=== PATIENT | female | born 1935 | race Caucasian/White ===

== ENCOUNTER → 2016-09-03 08:34 | Outpatient (CLI) | payer MEDICARE, BC ==
[2013-06-07 07:01] VITALS: BMI 29.9
[~2016-09-03 08:34] MED LIST: BAYER CHEWABLE81 MG PO; BUSPAR5 MG PO; CARAFATE1 G PO; CETIRIZINE HCL5 MG PO; CULTURELLE1 CAP PO; DESERYL100 MG PO; FLAXSEED OIL1000 MG PO; HYOSCYAMINE0.125 M1 SL; PLAVIX75 MG PO; PRILOSEC20 MG PO; SYMBICORT 16010.2 GM INH; VITAMIN D5000 UNIT PO; ZOCOR80 MG PO
--- NOTE | 2016-09-03 09:52 | NUR ---
Nutrition education for DMT2: Pt interview reveals pt is eating at very erratic times during the day. Pt is not eating at the same time 2 days in a row. Pt is eating very small meals, almost snack size meals, and is trying to avoid most CHO. However, pt did not know that fruit and dairy are CHO containing foods. Pt is also eating a lot of high sugar foods and drinks. Pt likes cookies and milk, ice cream and fast food. Pt reports she does not think she eats too much of these foods. Ht: 5'6" Wt: 208# IBW: 130# +/-10% BMI: 34 Meds: Metformin Reviewed CHO containing foods and the affect CHO have on glucose. Reviewed portion sizes of common CHO foods. Stressed the importance of eating meals at consistent times every day along with portion control to keep glucose under good control every day. Reviewed sample menus with emphasis on CHO foods. Reviewed normal glucose numbers for before meals and after meals. Reviewed A1c numbers. Advised pt to purchase a glucometer from [employer] and start checking blood sugar. Provided pt with printed diet information and RDN name and phone number. RDN will be available if needed. Pt with fair to good understanding of information provided. RDN feels pt will attempt to be compliant with information. Thank you for the consult.
== END | disposition home or self-care (01) ==
LOC: D.FANS 08-21 10:30
DX: E11.9 Type 2 diabetes mellitus without complications (principal)

== ENCOUNTER 2017-04-07 09:08 | Outpatient (CLI) | payer MEDICARE, BC ==
--- NOTE | ~2017-04-07 | HEMODYNAMI ---
PATIENT:LISBETH SHABAZZ MEDICAL RECORD: [id number] : 37 LOCATION:[facility] ADMISSION DATE: 04/07/17 Generatedon:04/07/201711:16 Patient name: LISBETH SHABAZZ Patient #: [id number] SSN: : 1935 Date of study: 04/07/2017 Page: Of Hemodynamic Procedure Report Patient Data Patient Demographics Procedure consent was obtained First Name: LISBETH Gender: Female Last Name: MELE : 1935 [facility] Initial: D Age: 81 year(s) Patient #: [id number] Race: Unknown Additional ID: [id number] Contact details Address: [address] [place] [address] State: [place] City: [facility] Zip code: [address] Past Medical History Allergies Allergen Reaction Date Comments Reported Other allergy 04/07/2017 Codeine, Pentazocine. Admission Admission Data Admission Date: 04/07/2017 Admission Time: 9:08 Admit Source: Other Lab Results Lab Result Date: 04/07/2017 Lab Result Time: 9:40 Biochemistry Name Units Result Min Max BUN mg/dl 15 --(--*-)-- 7 18 Creatinine mg/dl 1 --(--*-)-- 0.6 1.3 CBC Name Units Result Min Max Hematocrit % 38.2 *-(----)-- 42 54 Hemoglobin g/dl 12.1 *-(----)-- 13.5 17.5 Procedure Procedure Types Cath Procedure Diagnostic Procedure [facility] w/Coronaries PCI Procedure Coronary Stent Initial Miscellaneous Procedures Moderate Sedation up to 30 minutes Procedure Description Procedure Date Procedure Date: 04/07/2017 Procedure Start Time: 10:56 Procedure End Time: 11:12 Procedure Staff Name Function Viridiana Spencer RT Scrub North Reilly RN Nurse Ishmael Baez MD Performing Physician Zion Comer RT Monitor Procedure Data Cath Procedure Fluoroscopy Diagnostic fluoroscopy Total fluoroscopy Time: 4.4 time: 4.4 min min Diagnostic fluoroscopy Total fluoroscopy dose: dose: 203.26 mGy 203.26 mGy Contrast Material Contrast Material Type Amount (ml) Isovue 300 106 Entry Location Entry Primary Successful Side Size Upsize Upsize Entry Closure Ugalde ccessful Closure Location (Fr) 1 (Fr) 2 (Fr) Remarks Device Remarks Radial Right 6 Fr Mechanical artery Short Compression Estimated blood loss: 10 ml Diagnostic catheters Device Type Used For End Catheter Placement Diagnostic Terumo 5Fr Procedure Accident 110cm catheter Procedure Complications No complications Procedure Medications Medication Administration Route Dosage Oxygen NC 2 l/min Heparin Flush Bag added to field 2 bags (1000units/500ml NS) 0.9% NaCl I.V. 100 ml/hr Radial Cocktail added to field 1 syringe (Verapomil 2mg/Nitro 400mcg/Heparin 1500units) Fentanyl I.V. 50 mcg Versed I.V. 1 mg Radial Cocktail I.A. 1 syringe (Verapomil 2mg/Nitro 400mcg/Heparin 1500units) Fentanyl I.V. 50 mcg Versed I.V. 1 mg Heparin Bolus I.V. 4000 units Integrilin (Bolus I.V. 7.3 ml 2mg/ml) Integrilin (Bolus wasted 2.7 ml 2mg/ml) Plavix P.O. 600 mg Hemodynamics Rest HGB: 12.1 (g/dl) Heart Rate: 69 (bpm) Pressure Samples Time Site Value (mmHg) Purpose Heart Use Rate(bpm) 10:57 LV 190/145,138 Snapshot 75 10:57 LV 135/7,13 Snapshot 72 Snapshots Pre Cath Intra NCS Post Cath Vital Signs Time Heart Resp SPO2 NIBP (mmHg) Rhythm Pain Sedation Rate (ipm) (%) Status Level (bpm) 10:44:13 65 18 98 187/95(134) NSR 0 (11) 10(A) , No pain 10:48:47 67 18 94 185/87(154) NSR 0 (11) 10(A) , No pain 10:53:18 69 16 98 167/88(145) NSR 0 (11) 10(A) , No pain 10:57:46 73 19 98 127/76(109) NSR 0 (11) 9(A) , No pain 11:02:02 75 19 95 140/79(112) NSR 0 (11) 9(A) , No pain 11:06:24 77 16 97 146/78(114) NSR 0 (11) 9(A) , No pain 11:10:46 78 17 98 162/85(131) NSR 0 (11) 10(A) , No pain Medications Time Medication Route Dose Verified Delivered Reason Note s Effectiveness by by 10:40:17 Oxygen NC 2 l/min Ishmael Kat Per physician Nestor Reilly RN 10:40:26 Heparin Flush added 2 bags Ishmael Kat used for Bag to Nestor Reilly RN procedure (1000units/500ml field NS) 10:40:36 0.9% NaCl I.V. 100 Ishmeal Kat Per physician ml/hr Nestor Reilly RN 10:40:47 Radial Cocktail added 1 Ishmael Kat used for (Verapomil to syringe Nestor Reilly RN procedure 2mg/Nitro field 400mcg/Hepari 10:54:34 Fentanyl I.V. 50 mcg Ishmael Kat for sedation Nestor Reilyl RN 10:54:44 Versed I.V. 1 mg Ishmael Kat for sedation Nestor Reilly RN 10:56:28 Radial Cocktail I.A. 1 Ishmael Quiñones for (Verapomil syringe Nestor Baez MD vasodilation 2mg/Nitro 400mcg/Hepari 10:57:07 Fentanyl I.V. 50 mcg Ishmael Quiñones for sedation Nestor Baez MD 10:57:12 Versed I.V. 1 mg Ishmael Quiñones for sedation Nestor Baez MD 11:06:47 Heparin Bolus I.V. 4000 Ishmael Kat for units Nestor Reilly RN anticoagulation 11:07:02 Integrilin I.V. 7.3 ml Ishmael Kat for (Bolus 2mg/ml) Nestor Reilly RN antiplatelet therapy 11:07:10 Integrilin wasted 2.7 ml Ishmael Kat for (Bolus 2mg/ml) Nestor Reilly RN antiplatelet therapy 11:09:59 Plavix P.O. 600 mg Ishmael Kat for Nestor Reilly RN antiplatelet therapy Procedure Log Time Note 10:15:28 North Reilly RN sent for patient. Start room use. 10:34:56 Informed consent obtained and on chart 10:34:59 Admit Source: Other 10:35:27 Diagnostic Cath status Elective 10:35:29 Time tracking: Regular hours 10:35:32 Plan of Care:Hemodynamics will remain stable., Cardiac rhythm will remain stable., Comfort level will be maintained., Respiratory function will remain adequate., Patient/ family verbilizes understanding of procedure., Procedure tolerated without complication., Recovers from procedure without complications.. 10:35:43 Patient received from Pre/Post Procedure Room to CCL 1 Alert and oriented. Tansferred to table in Supine position. 10:35:44 Correct patient and procedure confirmed by team. 10:35:44 Warm blankets applied, and torey hugger turned on for patient comfort. 10:35:45 ECG and BP/O2 sat monitors applied to patient. 10:36:03 H&P Date Dictated: 04/03/2017 Within 30 days and on chart., H&P Addendum completed by physician on day of procedure. (MUST COMPLETE FOR ALL OUTPATIENTS). 10:36:04 Pre-procedure instructions explained to patient. 10:36:05 Pre-op teaching completed and patient verbalized understanding. 10:36:06 Family in waiting room. 10:36:07 Patient NPO since Midnight. 10:36:23 Patient allergic to Other allergyCodeine, Pentazocine. 10:36:25 Is the patient allergic to Iodine/contrast media? No. 10:36:38 If diabetic: On Metformin? Yes 10:36:42 If on Metformin: Last Dose? 04/05/2017 10:40:17 Oxygen 2 l/min NC was administered by North Reilly RN; Per physician; 10:40:26 Heparin Flush Bag (1000units/500ml NS) 2 bags added to field was administered by North Reilly RN; used for procedure; 10:40:36 0.9% NaCl 100 ml/hr I.V. was administered by North Reilly RN; Per physician; 10:40:47 Radial Cocktail (Verapomil 2mg/Nitro 400mcg/Heparin 1500units) 1 syringe added to field was administered by North Reilly RN; used for procedure; 10:42:51 Vital chart was started 10:49:04 Is patient on blood thinner?No 10:49:05 Patient diabetic? Yes. 10:49:31 Previous problem with sedation/anesthesia? No ? 10:49:32 Snore? Yes 10:49:33 Sleep apnea? Yes 10:49:35 Deviated septum? No 10:49:36 Sticks out tongue? Yes 10:49:36 Opens mouth fully? Yes 10:49:42 Airway obstruction? No ? 10:49:46 Dentures? Yes In tight 10:49:49 Modified Govind's test Ulnar < 7 seconds 10:49:51 Patient pain scale 0/10 ?. 10:49:59 IV patent on arrival in left forearm with 0.9% NaCl at [facility]. 10:50:57 Lab Result : Hemoglobin 12.1 g/dl 10:50:57 Lab Result : Hematocrit 38.2 % 10:50:57 Lab Result : BUN 15 mg/dl 10:50:57 Lab Result : Creatinine 1 mg/dl 10:52:30 Lab results completed and on chart. 10:52:31 Right Radial & Right Groin area was prepped with chlora-prep and draped in sterile fashion 10:52:33 Alarms reviewed by R. N. 10:52:34 Sharps counted by scrub and verified by R.N. 10:52:40 Use device set Radial Dx 10:52:43 Tegaderm 4 x 4 opened to sterile field. 10:52:44 Acist Hand Control opened to sterile field. 10:52:44 Acist Manifold opened to sterile field. 10:52:45 Medline Cath Pack opened to sterile field. 10:52:45 Acist Syringe opened to sterile field. 10:52:46 Terumo 6Fr Slender Glidesheath opened to sterile field. 10:52:46 Bag Decanter opened to sterile field. 10:52:47 St Talha 260cm J .035 wire opened to sterile field. 10:53:15 Baseline sample Acquired. 10:53:18 Rhythm: sinus rhythm 10:53:19 Full Disclosure recording started 10:53:22 Final Timeout: patient, procedure, and site verified with staff and physician. All members of the team are in agreement. 10:53:22 --------ALL STOP TIME OUT------ 10:53:22 Physician arrived 10:53:24 Right Radial & Right Groin site verified by team. 10:53:26 Physical assessment completed. ASA score P 2 - A patient with mild systemic disease as per Ishmael Baez MD. 10:53:28 Sedation plan: IV Moderate Sedation Versed, Fentanyl 10:54:34 Fentanyl 50 mcg I.V. was administered by North Reilly RN; for sedation; 10:54:44 Versed 1 mg I.V. was administered by North Reilly RN; for sedation; 10:56:12 Procedure started. 10:56:16 Local anesthetic to right radial artery with Lidocaine 2% by Ishmael Baez MD.INITIAL ACCESS ONLY 10:56:28 Radial Cocktail (Verapomil 2mg/Nitro 400mcg/Heparin 1500units) 1 syringe I.A. was administered by Ishmael Baez MD; for vasodilation; 10:56:29 A 6 Fr Short sheath was inserted into the Right Radial artery 10:56:30 A Diagnostic EnviroMission 5Fr Accident 110cm catheter was advanced over the wire and used for Procedure. 10:56:43 Zero performed for pressure channel P1 10:56:46 Zero performed for pressure channel P1 10:57:07 Fentanyl 50 mcg I.V. was administered by Ishmael Baez MD; for sedation; 10:57:12 Versed 1 mg I.V. was administered by Ishmael Baez MD; for sedation; 10:57:29 LV gram done using MURPHY 10:57:34 Injector settings: Ml/sec: 5, Volume: 15, 10:57:43 EF : 60 % 10:57:50 LCA angiography performed. 10:58:41 Soler Whisper J 300cm 0.014 guide wire opened to sterile field. 10:58:41 [facility] BasixCompak Inflation Kit opened to sterile field. 10:58:47 RCA angiography performed. 10:59:28 Catheter removed. 10:59:35 Medtronic Launcher 6Fr AR 2.0 SH guide catheter opened to sterile field. 11:00:25 6 Fr AR 2 SH guide catheter was inserted over the wire 11:03:20 whisper wire advanced. 11:03:31 Wire advanced across lesion. 11:03:59 Inflation Number: 1 A Medtronic Integrity 3.5 X 15 stent was prepped and advanced across the Dist RCA. The stent was deployed at 11 CHARITY for 0:10 (min:sec). 11:04:32 Inflation number: 1 The stent balloon was then re-inflated across the Prox RCA to 11 CHARITY for 0:10 (min:sec). 11:04:39 Inflation number: 2 The stent balloon was then re-inflated across the Prox RCA to 11 CHARITY for 0:10 (min:sec). 11:04:58 Stent catheter was removed intact over wire. 11:05:04 Terumo TR Band Standard opened to sterile field. 11:06:47 Heparin Bolus 4000 units I.V. was administered by North Reilly RN; for anticoagulation; 11:07:02 Integrilin (Bolus 2mg/ml) 7.3 ml I.V. was administered by North Reilly RN; for antiplatelet therapy; 11:07:10 Integrilin (Bolus 2mg/ml) 2.7 ml wasted was administered by North Reilly RN; for antiplatelet therapy; 11:07:24 Inflation Number: 3 A Medtronic Integrity 3.5 X 12 stent was prepped and advanced across the Prox RCA. The stent was deployed at 13 CHARITY for 0:10 (min:sec). 11:08:10 Guide catheter removed. 11:08:10 Wire removed. 11:08:10 Stent catheter was removed intact over wire. 11:08:18 Sheath removed intact; hemostasis achieved with Mechanical Compression to the Right Radial artery. 11:08:19 Procedure ended.(Physican Out) 11:08:45 Fluoroscopy time 04.40 minutes. 11:08:50 Fluoroscopy dose: 203.26 mGy 11:08:50 Flurop Dose total: 203.26 11:08:53 Contrast amount:Isovue 300 106ml. 11:09:13 Sharps counted by scrub and verified by R.N. 11:09:16 TR band inflated with 12cc of air. 11:09:17 Insertion/operative site no bleeding no hematoma. 11:09:23 Post right radial artery:stable, soft, clean and dry 11:09:24 Post Procedure Pulses reassessed and unchanged 11:09:51 Post-procedure physical assessment completed. ASA score P 2 - A patient with mild systemic disease as per Ishmael Baez MD. 11:09:53 Post procedure rhythm: unchanged. 11:09:55 Estimated blood loss: 10 ml 11:09:56 Post procedure instruction explained to patient.Patient verbalizes understanding. 11:09:57 Patient needs reinforcement of post procedure teaching. 11:09:59 Plavix 600 mg P.O. was administered by North Reilly RN; for antiplatelet therapy; 11:10:30 Procedure type changed to Cath procedure, Diagnostic procedure, LHC, LHC w/Coronaries, PCI procedure, Coronary Stent Initial, Miscellaneous Procedures, Moderate Sedation up to 30 minutes 11:11:58 Procedure and supply charges have been captured, reviewed, submitted and are correct. 11:12:02 Procedure Complication : No complications 11:12:07 See physician's report for complete and final results. 11:12:07 Vital chart was stopped 11:12:09 Report given to PCU. 11:12:20 Patient transfered to PCU with Stretcher. 11:12:22 Full Disclosure recording stopped 11:12:22 Procedure ended. 11:12:27 End room use (Document Last) Intervention Summary Intervention Notes Time ActionType Lesion and Equipment Action# Pressure Duration Attributes Used 11:03:59 Place stent Dist RCA Medtronic 1 11 00:10 Integrity 3.5 X 15 stent 11:04:32 Reinflate Prox RCA Medtronic 1 11 00:10 stent Integrity balloon 3.5 X 15 stent 11:04:39 Reinflate Prox RCA Medtronic 2 11 00:10 stent Integrity balloon 3.5 X 15 stent 11:07:24 Place stent Prox RCA Medtronic 3 13 00:10 Integrity 3.5 X 12 stent Device Usage Item Name Manufacture Quantity Catalog Hospital Part Current Minimal Lot# / Number Charge Number Stock Stock Serial# Code Tegaderm 4 1 [id number] 5 x 4 Acist Acist 1 15590 455047 591827 718496 5 Manifold [employer] Inc Acist Hand Acist 1 18782 911661 787295 859920 5 Control Medical [employer] Inc Acist Acist 1 32039 664436 534479 560490 20 Syringe Medical Systems Inc Medline Cardinal 1 [id number] 432825 81848 979033 5 Cath Pack Health Bag Microtek 1 2001S 130752 97000 481830 5 [employer]. Terumo 6Fr Terumo 1 [id number] 778362 280445 536433 [address] Talha St Talha 1 [id number] 151940 048303 471858 30 260cm J .035 wire Diagnostic Terumo 1 [id number] 694368 175060 220229 5 Terumo 5Fr Accident 110cm catheter Merit Merit 1 [id number] 356456 957913 159164 15 BasixCompak Medical Inflation Kit Soler Soler 1 [id number] 815788 256406 780595 5 Whisper J Vascular 300cm 0.014 guide wire Medtronic Medtronic 1 [id number] 690751 00751 783925 1 Launcher 6Fr AR 2.0 SH guide catheter Medtronic Medtronic 1 [id number] 044274 748688 8 [id number] Integrity 3.5 X 15 stent Terumo TR Terumo 1 [id number] 901085 741751 565380 40 Band Standard Medtronic Medtronic 1 [id number] 262428 499132 1 [id number] Integrity 3.5 X 12 stent Signature Audit [place] Stage Time Signature Unsigned Intra-Procedure 04/07/2017 Zion Comer 11:16:05 AM RT(R) Signatures Monitor : Zion Comer RT Signature : Date : Time : [facility] [address] [id number]
--- NOTE | ~2017-04-07 | HEMODYNAMI ---
PATIENT:LISBETH SHABAZZ MEDICAL RECORD: [id number] : 37 [id number] ADMISSION DATE: 04/07/17 Generatedon:04/08/20178:53 Patient name: LISBETH SHABAZZ Patient #: [id number] SSN: : 1935 Date of study: 04/08/2017 Page: Of Hemodynamic Procedure Report Patient Data Patient Demographics Procedure consent was obtained First Name: LISBETH Gender: Female Last Name: MELE : 1935 Middle Initial: D Age: 81 year(s) Patient #: [id number] Race: Additional ID: [id number] Contact details Address: [address] [place] [address] State: [place] City: [facility] Zip code: [address] Past Medical History Allergies Allergen Reaction Date Comments Reported Other allergy 04/07/2017 Codeine, Pentazocine. Other allergy 04/08/2017 codeine, pentazocine Admission Admission Data Admission Date: 04/07/2017 Admission Time: 9:08 Arrival Date: 04/07/2017 Arrival Time: 9:08 Admit Source: Other Insurance Payor: Medicare Room #: D.2103 Lab Results Lab Result Date: 04/07/2017 Lab Result Time: 9:40 Biochemistry Name Units Result Min Max BUN mg/dl 15 --(--*-)-- 7 18 Creatinine mg/dl 1 --(--*-)-- 0.6 1.3 CBC Name Units Result Min Max Hematocrit % 38.2 *-(----)-- 42 54 Hemoglobin g/dl 12.1 *-(----)-- 13.5 17.5 Procedure Procedure Types Cath Procedure PCI Procedure Coronary Stent Initial Miscellaneous Procedures Moderate Sedation up to 15 minutes Procedure Description Procedure Date Procedure Date: 04/08/2017 Procedure Start Time: 8:41 Procedure End Time: 8:49 Procedure Staff Name Function Ishmael Baez MD Performing Physician Viridiana Spencer RT Scrub Sagar Arguello RN Nurse Carmen Telles RT Monitor Indication Angina Procedure Data Cath Procedure Fluoroscopy Diagnostic fluoroscopy Total fluoroscopy Time: 1.6 time: 1.6 min min Diagnostic fluoroscopy Total fluoroscopy dose: 136 dose: 136 mGy mGy Contrast Material Contrast Material Type Amount (ml) Isovue 300 41 Entry Location Entry Primary Successful Side Size Upsize Upsize Entry Closure Succes sful Closure Location (Fr) 1 (Fr) 2 (Fr) Remarks Device Remarks Femoral Right 6 Fr Exoseal artery Short Estimated blood loss: 10 ml Procedure Complications No complications Procedure Medications Medication Administration Route Dosage Oxygen NC 2 l/min Lidocaine 2% added to field 20 Heparin Flush Bag added to field 2 bags (1000units/500ml NS) 0.9% NaCl 100 ml/hr Versed I.V. 1 mg Fentanyl I.V. 50 mcg Heparin Bolus I.V. 4000 units Versed I.V. 1 mg Fentanyl I.V. 50 mcg Hemodynamics Rest HGB: 12.1 (g/dl) Heart Rate: 74 (bpm) Snapshots Pre Cath Intra NCS Post Cath Vital Signs Time Heart Resp SPO2 NIBP (mmHg) Rhythm Pain Sedation Rate (ipm) (%) Status Level (bpm) 8:22:18 69 17 99 186/95(161) NSR 0 (11) 10(A) , No pain 8:26:44 72 14 99 184/95(147) NSR 0 (11) 10(A) , No pain 8:31:11 74 15 99 166/83(131) NSR 0 (11) 10(A) , No pain 8:35:31 73 18 96 139/71(109) NSR 0 (11) 10(A) , No pain 8:39:49 72 18 96 142/73(113) NSR 0 (11) 10(A) , No pain 8:44:03 74 16 96 125/63(96) NSR 0 (11) 9(A) , No pain 8:48:15 73 16 97 131/67(99) NSR 0 (11) 9(A) , No pain 8:51:29 75 17 98 134/71(117) NSR 0 (11) 10(A) , No pain Medications Time Medication Route Dose Verified Delivered Reason Notes Effectiveness by by 8:24:28 Oxygen NC 2 Ishmael Keith for local l/min Nestor Arguello RN anesthetic 8:25:27 Lidocaine 2% added 20ml Ishmael Keith used for to vial Nestor Arguello RN procedure field 8:25:35 Heparin Flush added 2 Ishmael Ishmael used for Bag to bags Nestor Baez MD procedure (1000units/500ml field NS) 8:25:51 0.9% NaCl 100 Ishmael Buffie Per physician ml/hr Nestor Arguello RN 8:40:12 Versed I.V. 1 mg Ishmael Buffie for sedation Nestor Arguello RN 8:40:19 Fentanyl I.V. 50 Ishamel Buffie for sedation mcg Nestor Arguello RN 8:42:23 Heparin Bolus I.V. 4000 Ishmael Buffie for verifie d units Nestor Arguello RN anticoagulation with dr baez 8:45:27 Versed I.V. 1 mg Ishmael Buffie for sedation Nestor Arguello RN 8:45:30 Fentanyl I.V. 50 Ishmael Buffie for sedation mcg Nestor Arguello RN Procedure Log Time Note 7:45:57 Informed consent obtained and on chart 7:46:02 Diagnostic Cath Status : Elective 7:46:33 Indication : Angina 7:46:43 Time tracking: Regular hours 7:46:50 Plan of Care:Hemodynamics will remain stable., Cardiac rhythm will remain stable., Comfort level will be maintained., Respiratory function will remain adequate., Patient/ family verbilizes understanding of procedure., Procedure tolerated without complication., Recovers from procedure without complications.. 8:00:42 Sagar Arguello RN sent for patient. Start room use. 8:06:27 Arrival Date: 04/07/2017 9:08:00 AM 8:06:33 Insurance Payor : Medicare 8:16:13 Patient received from Med II to CCL 2 Alert and oriented. Tansferred to table in Supine position. 8:16:15 Warm blankets applied, and torey hugger turned on for patient comfort. 8:16:15 Correct patient and procedure confirmed by team. 8:16:16 ECG and BP/O2 sat monitors applied to patient. 8:21:05 Baseline sample Acquired. 8:21:05 Vital chart was started 8:21:12 Rhythm: sinus rhythm 8:21:14 Full Disclosure recording started 8:21:19 H&P Date Dictated: 04/08/2017 Within 30 days and on chart.. 8:21:20 Pre-procedure instructions explained to patient. 8:21:20 Pre-op teaching completed and patient verbalized understanding. 8:21:21 Family in waiting room. 8:21:23 Patient NPO since Midnight. 8:21:54 Patient allergic to Other allergycodeine, pentazocine 8:21:56 Is the patient allergic to Iodine/contrast media? No. 8:21:57 Was the patient premedicated? No 8:21:58 Is patient on blood thinner?Yes 8:22:00 ACC The patient was administered the following blood thiners within the last 24 hours: ACCPlavix 8:22:19 Patient diabetic? No. 8:22:21 Previous problem with sedation/anesthesia? No ? 8:22:23 Snore? Yes 8:22:24 Sleep apnea? Yes 8:22:25 Deviated septum? No 8:22:26 Opens mouth fully? Yes 8:22:26 Sticks out tongue? Yes 8:22:30 Airway obstruction? Yes copd 8:22:42 Dentures? Yes in tight 8:24:28 Oxygen 2 l/min NC was administered by Sagar Arguello RN; for local anesthetic; 8:24:50 Patient pain scale 0/10 ?. 8:25:02 IV patent on arrival in left hand with 0.9% NaCl at [facility]. 8:25:13 Lab results completed and on chart. 8:25:17 Right groin area was prepped with chlora-prep and draped in sterile fashion 8:25:18 Alarms reviewed by R. N. 8:25:19 Sharps counted by scrub and verified by R.N. 8:25:24 Physician paged 8:25:27 Lidocaine 2% 20ml vial added to field was administered by Sagar Arguello RN; used for procedure; 8:25:32 Use device set Femoral PCI 8:25:33 Acist Syringe opened to sterile field. 8:25:34 Acist Hand Control opened to sterile field. 8:25:34 Bag Decanter opened to sterile field. 8:25:35 Heparin Flush Bag (1000units/500ml NS) 2 bags added to field was administered by Ishmael Baez MD; used for procedure; 8:25:35 Medline Cath Pack opened to sterile field. 8:25:35 Terumo 6Fr Thornton Sheath opened to sterile field. 8:25:36 St Talha 260cm J .035 wire opened to sterile field. 8:25:36 Merit BasixCompak Inflation Kit opened to sterile field. 8:25:37 Acist Manifold opened to sterile field. 8:25:37 Tegaderm 4 x 4 opened to sterile field. 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 dr baez made aware 8:36:42 Zero performed for pressure channel P1 8:39:16 Physician arrived 8:39:16 --------ALL STOP TIME OUT------ 8:39:17 Final Timeout: patient, procedure, and site verified with staff and physician. All members of the team are in agreement. 8:39:19 Right groin site verified by team. 8:39:22 Physical assessment completed. ASA score P 2 - A patient with mild systemic disease as per Ishmael Baez MD. 8:39:50 Cordis 6FR XBLAD 3.5 guide catheter opened to sterile field. 8:39:51 Soler Whisper J 300cm 0.014 guide wire opened to sterile field. 8:40:12 Versed 1 mg I.V. was administered by Sagar Arguello RN; for sedation; 8:40:19 Fentanyl 50 mcg I.V. was administered by Sagar Arguello RN; for sedation; 8:40:53 Procedure started. 8:41:02 Local anesthetic to right femoral artery with Lidocaine 2% by Ishmael Baez MD.INITIAL ACCESS ONLY 8:41:15 A 6 Fr Short sheath was inserted into the Right Femoral artery 8:41:32 6 Fr XBLAD 3.5 guide catheter was inserted over the wire 8:41:37 Whisper wire advanced. 8:42:23 Heparin Bolus 4000 units I.V. was administered by Sagar Arguello RN; for anticoagulation; verified with dr baez 8:45:21 Inflation Number: 1 A [employer]tronic Integrity 2.25 X 14 stent was prepped and advanced across the 1st Diag. The stent was deployed at 13 CHARITY for 0:14 (min:sec). 8:45:27 Versed 1 mg I.V. was administered by Sagar Arguello RN; for sedation; 8:45:30 Fentanyl 50 mcg I.V. was administered by Sagar Arguello RN; for sedation; 8:45:53 Cordis 6Fr Exoseal opened to sterile field. 8:46:56 Wire removed. 8:46:57 Guide catheter removed. 8:47:10 Sheath removed intact; hemostasis achieved with Exoseal to the Right Femoral artery. 8:47:13 Procedure ended.(Physican Out) 8:47:41 Fluoroscopy time 01.60 minutes. 8:48:00 Flurop Dose total: 136 8:48:00 Fluoroscopy dose: 136 mGy 8:48:04 Contrast amount:Isovue 300 41ml. 8:48:06 Sharps counted by scrub and verified by R.N. 8:48:10 Insertion/operative site no bleeding no hematoma. 8:48:13 Post right femoral artery:stable 8:48:15 Post Procedure Pulses reassessed and unchanged 8:48:20 Post-procedure physical assessment completed. ASA score P 2 - A patient with mild systemic disease as per Ishmael Baez MD. 8:48:23 Post procedure rhythm: unchanged. 8:48:26 Estimated blood loss: 10 ml 8:48:28 Post procedure instruction explained to patient.Patient verbalizes understanding. 8:48:29 Patient needs reinforcement of post procedure teaching. 8:48:40 Procedure type changed to Cath procedure, PCI procedure, Coronary Stent Initial, Miscellaneous Procedures, Moderate Sedation up to 15 minutes 8:48:42 Procedure and supply charges have been captured, reviewed, submitted and are correct. 8:48:47 Procedure Complication : No complications 8:49:15 Vital chart was stopped 8:49:16 See physician's report for complete and final results. 8:49:19 Report given to Med II. 8:49:25 Patient transfered to Med II with Stretcher. 8:49:28 Procedure ended. 8:49:28 Full Disclosure recording stopped 8:49:31 End room use (Document Last) 8:49:37 ACC-PCI Only Patient was given prescriptions, or instructed by Ishmael Baez MD to start/continue the following medications upon discharge: Plavix Intervention Summary Intervention Notes Time ActionType Lesion and Equipment Action# Pressure Duration Attributes Used 8:45:21 Place stent 1st Diag Medtronic 1 13 00:14 Integrity 2.25 X 14 stent Device Usage Item Name Manufacture Quantity Catalog Hospital Part Current Minimal L ot# / Number Charge Number Stock Stock Serial# Code Acist Acist 1 96473 [id number] 322468 369063 20 Syringe Medical Systems Inc Acist Hand Acist 1 52144 468419 479029 891378 5 Control Medical Systems Inc Bag Microtek 1 2002S 897467 59965 526015 5 Decanter Medical Inc. Medline Cardinal 1 [id number] 424593 65174 190100 5 Cath Pack Health Terumo 6Fr Terumo 1 [id number] 079663 020524 875363 [address] St Talha 1 110216 386929 823514 883033 30 260cm J .035 wire Merit Merit 1 [id number] 357488 201310 706611 15 BasixThe Beer X-Change Medical Inflation Kit Acist Acist 1 28928 251424 258522 549817 5 Manifold Medical Systems Inc Tegaderm 4 3M 1 1626W 044386 328842 391319 5 x 4 Cordis 6FR Cardinal 1 [id number] 377777 452900 679829 10 XBLAD 3.5 Health guide catheter Soler Soler 1 [id number] 314720 128688 065701 5 Whisper J Vascular 300cm 0.014 guide wire Medtronic Medtronic 1 [id number] 168060 312818 1 0 [id number] Integrity 2.25 X 14 stent Cordis 6Fr Cardinal 1 EX600 984699 664902 354465 10 [facility] [employer] Signature Audit Bliss Stage Time Signature Unsigned Intra-Procedure 04/08/2017 Carmen Telles 8:52:53 AM RT(R) Signatures Monitor : Carmen Telles Signature : RT Date : Time : [place] [id number] [place] [id number]
[2017-04-07] MEDS ORDERED: PROTONIX FOR OR40 MG PT (09:32)
[2017-04-07] MEDS ORDERED: GLUCOPHAGE500 MG PO (09:33)
[2017-04-07] MEDS ORDERED: FUROSEMIDE20 MG PO (09:34)
[2017-04-07] MEDS ORDERED: LYRICA50 MG PO (09:34)
[2017-04-07] MEDS ORDERED: PRESERVISION AR1 CAP PO (09:35)
[2017-04-07] MEDS ORDERED: CULTURELLE1 CAP PO (09:35)
[2017-04-07] MEDS ORDERED: BAYER CHEWABLE81 MG PO (09:35)
[2017-04-07] MEDS ORDERED: ZYRTEC10 MG PO (09:35)
[2017-04-07] MEDS ORDERED: VITAMIN D31000 UNIT PO (09:36)
[2017-04-07] MEDS ORDERED: MIRALAX17 GM PO (09:40)
[2017-04-07 09:48] VITALS: BP 183/76; BMI 29.4
[2017-04-07 09:55] LABS: BASOPHILS 0.5 % (0-2); EOSINOPHILS 3.5 % (0-7); HEMATOCRIT 38.2 % (36.0-48.0); HEMOGLOBIN 12.1 g/dL (12-16); LYMPHOCYTES 18.5 % (15-50); MCH 28.5 pg (26.0-34.0); MCHC 31.7 g/dL (31.0-37.0); MCV 89.9 fL (80.0-100.0); MEAN PLATELET VOLUME 10.7 fL (7.4-10.4); MONOCYTES 6.3 % (2-11); NEUTROPHILS 71.2 % (40-80); PLATELET COUNT 289 10x3/uL (130-400); RBC 4.25 10x6/uL (4.00-5.40); RDW 14.4 % (11.5-14.5)
[2017-04-07 10:05] LABS: ANION GAP 10.2 mmol/L (8-16); CALCIUM 9.7 mg/dL (8.5-10.1); CARBON DIOXIDE 30.2 mmol/L (21.0-32.0); POTASSIUM - SERUM 4.4 mmol/L (3.5-5.1)
--- NOTE | 2017-04-07 12:00 | NUR ---
ARRIVE TO ROOM VIA STRETCHER FROM DECORATING EQUIPMENT SETTER. ALERT AND ORIENTED X4. TWO STENTS TO RCA. BACK TOMORROW FOR STENT TO LAD. TR BAND TO RIGHT WRIST. NO BLEEDING. NO HEMATOMA. PULSES +2 BILATERALLY. CONTINUE PLAN OF CARE. BED LOCKED AND LOW. CALL LIGHT IN REACH. DAUGHTER AT BEDSIDE. REFUSE SCDs. 68bpm SINUS RHTHYM ON TELEMETRY.
[2017-04-07 12:58] VITALS: BP 156/70
[2017-04-07 16:00] VITALS: BP 135/76
--- NOTE | 2017-04-07 17:20 | NUR ---
ALERT AND ORIENTED X4. SITTING UP IN CHAIR. CONSENT FOR MATHEMATICIAN 04/08/17 SIGNED ON CHART. TR BAND REMOVED. FREE FROM BLEEDING. FREE FROM HEMATOMA. DENIES ANY NEEDS. CONTINUE PLAN OF CARE AND SAFETY PRECAUTIONS. SINUS RHTHYM ON TELEMETRY.
[2017-04-07 19:13] VITALS: BP 167/65
--- NOTE | 2017-04-07 20:01 | NUR ---
RECEIVED REPORT, WILL ASSUME CARE OF PT, PT SITTING IN CHAIR, DENIES ANY NNEDS AT THIS TIME, WILL CONTINUE PLAN OF CARE
[2017-04-08] VITALS: BP 146/58
--- NOTE | 2017-04-08 04:04 | NUR ---
ASSESSMENT COMPLETE, SEE FLOWSHEET, PT SLEEPING, BEEN NPO SINCE MIDNIGHT, BED IS LOW, SRX2, CALL LIGHT IN REACH, WILL CONTINUE PLAN OF CARE
--- NOTE | 2017-04-08 04:26 | NUR ---
DIRECTOR OF HOME ECONOMICS AT BEDSIDE TO OBTAIN VITALS, CALL LIGHT IN REACH. WILL CONTINUE WITH PLAN OF CARE.
[2017-04-08 04:28] VITALS: BP 153/87
[2017-04-08 07:58] VITALS: BP 161/77
--- NOTE | 2017-04-08 09:15 | NUR ---
RETURN TO ROOM VIA BED FROM [employer] DEVELOPER. ALERT AND ORIENTED X4. RT GROIN DRESSING CLEAN DRY INTACT. FREE FROM BLEEDING. FREE FROM HEMATOMA. BP-154/77, P-72bpm SINUS RHTHYM, O2- 97% WITH 2L NC. PULSE +2 BILATERALLY. REMAIN FLAT FOR 4HOURS. CONTINUE PLAN OF CARE. BED LOCKED AND LOW. CALL LIGHT IN REACH. TWO SIDERAILS UP.
[2017-04-08] MEDS ORDERED: PLAVIX75 MG PO (10:28)
--- NOTE | 2017-04-08 13:05 | NUR ---
ALERT AND ORIENTED X4. RESTING IN BED. RT GROIN FREE FROM BLEEDING. FREE FROM HEMATOMA. COMPLAINS OF HEADACHE. BP-181/81. PAGED FOR BP MEDICATION. DENIES SOB. SINUS RHTHYM ON TELEMETRY. CONTINUE PLAN OF CARE AND SAFETY PRECAUTIONS.
--- NOTE | 2017-04-08 16:48 | NUR ---
ALERT AND ORIENTED X4. SITTING UP ON SIDE OF BED. DISCHARGE INSTRUCTIONS GIVEN VERBALLY AND WRITTEN. WRITTEN PRESCRIPTION FOR PLAVIX GIVEN. DC LT HAND IV TIP INTACT. ESCORT ARRIVE FOR TRANSPORT. RIGHT WRIST DRESSING CLEAN DRY INTACT. RT GROIN DRESSING CLEAN DRY INTACT. FREE FROM BLEEDING. FREE FROM HEMATOMA. ESCORT TO RIDE VIA WHEELCHAIR. REMAINS FREE FROM INJURY.
--- NOTE | 2017-04-11 13:09 | OP ---
PATIENT NAME: LISBETH SHABAZZ MEDICAL RECORD: [id number] :37 LOCATION:D.CAT ADMISSION DATE: SURGEON: ABRAHAM STRONG MD DATE OF OPERATION: 04/07/2017 PROCEDURES: 1. PTCA stent to RCA. 2. Left heart catheterization. 3. Selective coronary angiography. 4. Left ventriculogram. INDICATION: Angina and coronary artery disease. PROCEDURE IN DETAIL: After informed consent was obtained and after detailed explanation of risks, benefits as well as alternative therapies, the patient elected to proceed with angiogram and angioplasty. The right radial area was prepped and draped in normal sterile fashion. The right radial artery was cannulated via modified Seldinger technique with placement of 6-Belarusian sheath. All catheters were exchanged through this sheath. FINDINGS: The left ventriculogram was performed in the standard 30-degree MURPHY view reveals good cardiac wall motion throughout all segments. Overall ejection fraction estimated at 60%. SELECTIVE CORONARY ANGIOGRAPHY: 1. Left main showed no significant angiographic disease. 2. Left anterior descending has a large diagonal system with 80+ percent stenosis. 3. The left circumflex has previously placed stent. This is widely patent. No disease elsewise in the left circumflex or its branches. 4. The right coronary has previously placed stents. There is 70% stenosis proximal to these previously placed stents and 70% to 80% stenosis in the mid distal vessel. PTCA STENT OF THE RIGHT CORONARY ARTERY: Mid distal vessel was addressed with a 3.5 x 15 mm Integrity, proximally with a 3.5 x 12 mm Integrity. Result was 0% residual stenosis. OVERALL IMPRESSION: Successful percutaneous transluminal coronary angioplasty stent of the right coronary artery going from 70% to 80% initial stenosis. PLAN: PTCA stent of the LAD diagonal in the near future. TRANSINT:[id number] Voice Confirmation ID: [id number] DOCUMENT ID: [id number] ABRAHAM STRONG MD at 1309 CC: [id number] DICTATION DATE: 04/07/17 1112 PHARMACY AFFAIRS ASSISTANT: 04/07/17 1149 DEP CLI 04/08/17 [place] [address]
--- NOTE | 2017-04-11 13:09 | DS ---
PATIENT:LISBETH HOOVER :37 MEDICAL RECORD: [id number] DISCHARGE SUMMARY ADMISSION DATE: 04/07/17 DISCHARGE DATE: 04/08/17 DISCHARGE DIAGNOSES: 1. Angina. 2. Coronary artery disease. 3. Percutaneous transluminal coronary angioplasty stent to right coronary artery and left anterior descending this admission. HOSPITAL COURSE: Ms. Hoover presents with anginal symptomatology, found to have 2-vessel coronary artery disease, underwent successful PTCA stent of the RCA and LAD and had an uneventful postop course. She was discharged home with the addition of aspirin and Plavix to her medical regimen. Will follow up with [facility] in 1 month. TRANSINT:[id number] Voice Confirmation ID: [id number] DOCUMENT ID: [id number] ABRAHAM STRONG MD at 1309 CC: [id number] DICTATION DATE: 04/08/17 0854 COMMUNITY SERVICE ORGANIZATION DIRECTOR: 04/08/17 1225 DEP CLI 04/08/17 [place] [id number] [place] [address]
--- NOTE | 2017-04-11 13:09 | OP ---
PATIENT NAME: LISBETH SHABAZZ MEDICAL RECORD: [id number] :37 LOCATION:D.CAT ADMISSION DATE: SURGEON: ABRAHAM STRONG MD DATE OF OPERATION: 04/08/2017 PROCEDURES: 1. PTCA stent LAD diagonal. 2. Selective coronary angiography. INDICATION: Angina and coronary artery disease. PROCEDURE IN DETAIL: After informed consent was obtained and after a detailed explanation of risks, benefits as well as alternative therapies, the patient elected to proceed with angiogram and angioplasty. The right femoral area was prepped and draped in normal sterile fashion. The right femoral artery was cannulated via modified Seldinger technique with placement of 6-Macedonian sheath. All catheters exchanged through this sheath. FINDINGS: The left anterior descending has a large diagonal system with 80%-90% stenosis in the mid vessel. This was addressed with a 2.25 x 14 mm Integrity stents. Result was 0% residual stenosis. OVERALL IMPRESSION: Successful percutaneous transluminal coronary angioplasty stent of the left anterior descending diagonal going from 80%-90% initial stenosis to 0% residual stenosis. TRANSINT:[id number] Voice Confirmation ID: [id number] DOCUMENT ID: [id number] ABRAHAM STRONG MD at 1309 CC: [id number] DICTATION DATE: 04/08/17 0855 LEAD INSPECTOR: 04/08/17 0909 DEP CLI 04/08/[address] [address]
== END 2017-04-08 17:00 | disposition home or self-care (01) ==
LOC: D.CATH 09:08 → D.M2 09:08 → D.CATH 11:30 → D.M2 12:25 → D.CATH 04-08 17:00
PROVIDERS: Internal Medicine Interventional Cardiology
DX: I25.119 Atherosclerotic heart disease of native coronary artery with unspecified angina pectoris (principal); I10 Essential (primary) hypertension; E78.5 Hyperlipidemia, unspecified; Z01.812 Encounter for preprocedural laboratory examination

== ENCOUNTER → 2018-09-01 09:20 | Outpatient (CLI) | payer MEDICARE, BC ==
--- NOTE | ~2018-09-01 | ST ---
PATIENT:LISBETH SHABAZZ MEDICAL RECORD: [id number] SEX: F LOCATION:[facility] ORDER #: ADMISSION DATE: 09/01/18 AGE OF PATIENT: 83 REFERRING PHYSICIAN: INTERPRETING PHYSICIAN: ABRAHAM STRONG MD DATE OF SERVICE: 09/01/2018 PROCEDURE: Nuclear Stress Test. INDICATION: Angina and coronary artery disease, hypertension. She was exercised on standard Lexiscan protocol with 33 mCi of sestamibi injected at peak stress, 11 mCi were used previously for rest images. FINDINGS: Gated SPECT reveals preserved ejection fraction at 69% with good wall motion and thickening and brightening throughout all segments. SPECT imaging Cardiolite was used as myocardial fusion agent. There is homogeneous uptake throughout all segments at rest and stress with no evidence of inducible ischemia or previous infarction. OVERALL IMPRESSION: 1. This is a normal nuclear stress test with no evidence of inducible ischemia or previous infarction. 2. Gated SPECT reveals a preserved ejection fraction at 69%. In this patient with ongoing symptomatology, the current scan does not suggest the presence of hemodynamically significant coronary artery disease. Evaluate noncardiac etiology of chest pain. TRANSINT:[id number] Voice Confirmation ID: [id number] DOCUMENT ID: [id number] ABRAHAM STRONG MD CC: [id number] DICTATION DATE: 09/04/18 1234 STUDENT RECORDS COORDINATOR: 09/05/18 0043 DEP CLI 09/01/18 [place] [address] [place] [address]
[~2018-09-01 09:20] MED LIST changes: +FUROSEMIDE20 MG PO; +GLUCOPHAGE500 MG PO; +LYRICA50 MG PO; +MIRALAX17 GM PO; +PRESERVISION AR1 CAP PO; +PROTONIX FOR OR40 MG PT; +VITAMIN D31000 UNIT PO; +ZYRTEC10 MG PO
== END | disposition home or self-care (01) ==
LOC: D.HCCARDIO 09:20
PROVIDERS: ATTEND Internal Medicine Interventional Cardiology
DX: I25.10 Atherosclerotic heart disease of native coronary artery without angina pectoris (principal)

== ENCOUNTER → 2019-12-01 09:53 | Outpatient (CLI) | payer MEDICARE, BC | END | disposition home or self-care (01) | LOC: D.CT 09:53 | PROVIDERS: ATTEND Thoracic Surgery (Cardiothoracic Vascular Surgery) | DX: I71.4 Abdominal aortic aneurysm, without rupture (principal) ==

== ENCOUNTER → 2019-12-21 12:49 | Outpatient (CLI) | payer MEDICARE, BC | END | disposition home or self-care (01) | LOC: D.US 12:49 | PROVIDERS: ATTEND Internal Medicine Interventional Cardiology | DX: I71.4 Abdominal aortic aneurysm, without rupture (principal); R60.0 Localized edema ==

== ENCOUNTER → 2019-12-29 10:28 | Outpatient (CLI) | payer MEDICARE, BC | END | disposition home or self-care (01) | LOC: D.HCCECHO 10:28 | PROVIDERS: ATTEND Internal Medicine Interventional Cardiology | DX: I25.10 Atherosclerotic heart disease of native coronary artery without angina pectoris (principal) ==